=== PATIENT | male | born 1955 | race African-American/Black ===

== ENCOUNTER 2018-07-18 09:44 | Emergency (ER) | payer BC, MEDICARE, OTHER ==
[~2018-07-18] VITALS: Ht 180.3 cm; Wt 143.0 kg
[2018-07-18 10:50] VITALS: BP 137/90
== END 2018-07-18 10:52 | disposition home or self-care (01) ==
LOC: ER 09:44
DX: T16.2XXA Foreign body in left ear, initial encounter (principal); X58.XXXA Exposure to other specified factors, initial encounter; Y93.89 Activity, other specified; Y92.89 Other specified places as the place of occurrence of the external cause; Y99.8 Other external cause status
CPT/HCPCS: 99283